=== PATIENT | male | born 1970 | race Caucasian/White ===

== ENCOUNTER 2016-09-03 07:52 | Emergency (ER) ==
[2016-09-03] MEDS ORDERED: ASPIRIN PO STA (07:53)
[2016-09-03 08:16] LABS: MANUAL DIFF NEEDED? NO
[2016-09-03 08:18] LABS: BASO% 0.4 % (0.0-0.8); EOS# 0.05 X1000 (0.0-0.7); EOS% 0.4 % (0.0-10.0); HEMATOCRIT 47.4 % (42.0-52.0); HEMOGLOBIN 16.6 g/dL (14.0-18.0); IMM GRAN# 0.02 X1000 (0.0-0.04); IMM GRAN% 0.2 % (0.0-0.5); LYMPH# 2.29 X1000 (1.2-3.4); LYMPH% 18.1 % (20.5-51.1); MCH 30.6 PG (27-31); MCV 87.3 FL (81-99); MONO# 1.05 X1000 (0.11-0.59); MONO% 8.3 % (1.7-9.3); MPV 10.6 FL (7.4-10.4); NEUT% 72.6 % (42.2-75.2); PLT 296 X1000 (130-400); RBC 5.43 XMIL (4.7-6.1)
[2016-09-03] MEDS ORDERED: MORPHINE IV ONE ×2 (08:21→08:24)
[2016-09-03] MEDS ORDERED: NITROGLYCERIN TOP ONE (08:22)
--- NOTE | 2016-09-03 08:22 | EKG Report ---
Test Performed on : 09/03/2016 07:54:04 AM Test Reason : CP Blood Pressure : / mmHG Vent. Rate : 106 BPM Atrial Rate : 106 BPM P-R Int : 146 ms QRS Dur : 092 ms QT Int : 350 ms P-R-T Axes : 060 -15 062 degrees QTc Int : 464 ms Sinus tachycardia. Minimal voltage criteria for LVH, may be normal variant Borderline ECG No previous ECGs available Unconfirmed Result
[2016-09-03] MEDS ORDERED: MORPHINE ONE (08:23)
[2016-09-03] MEDS ORDERED: NITROGLYCERIN ONE (08:24)
[2016-09-03] MEDS ORDERED: G.I. COCKTAIL PO ONE (08:24)
[2016-09-03] MEDS ORDERED: LOPRESSOR IV ONE ×2 (08:31→12:49)
--- NOTE | 2016-09-03 08:31 | PROVIDER DOCUMENTATION ---
HPI-Chest Pain <Luke Gasca - Last Filed: 09/03/16 11:22> - General Source: patient - History of Present Illness-CP Location: reports: substernal Chest Pain Radiation: reports: arms, shoulders, back Quality of Pain: reports: aching Severity in ED: severe Onset/Duration: last night Timing: still present, constant Context/Activities at Onset: reports: none Modifying Factors: improves with: nothing Associated Symptoms: denies: diaphoresis, edema, fever/chills, nausea, shortness of breath, vomiting Aspirin Treatment Today: no aspirin today Prior Chest Pain/Cardiac Workup: reports: no prior chest pain Similar Symptoms Previously?: Yes (see HPI) Recently Seen Here or By Another Healthcare Provider: No <Josse Lorenzana - Last Filed: 09/03/16 14:53> - General Chief Complaint: Chest Pain Stated Complaint: CHEST PAIN Time Seen by Provider: 09/03/16 08:19 Allergies/Adverse Reactions: Patient Allergies Allergy/AdvReac Type Severity Reaction Status Date / Time No Known Allergies Allergy Verified 09/03/16 08:04 Home Medications: Home Medication List Medication Instructions Recorded Confirmed Last Taken Type Amlodipine Besylate 5 mg PO BID 09/03/16 09/03/16 09/03/16 History Esomeprazole Magnesium [Nexium] 40 mg PO DAILY 09/03/16 09/03/16 09/02/16 History Lisinopril 20 mg PO BID 09/03/16 09/03/16 09/03/16 History Oxycodone HCl/Acetaminophen 1 each PO Q6H 09/03/16 09/03/16 09/02/16 History [Percocet 7.5-325 mg Tablet] - History of Present Illness-CP Nature of Presenting Problem: aching lower CP, constant since ~2100 last pm. Rad to back, down both arm to wrists, not below. Denies diaporesis, SOB, N/V, palpitations. Nothing makes better, worse. Says feels that cannot sit still. Had similar pain Fri pm, omly lasted 1-2 hours. No prior hx ht dz, or family hx (Josse Lorenzana) Review of Systems - Adult - REVIEW OF SYSTEMS - ADULT Constitutional: reports: no symptoms reported Eyes: reports: no symptoms reported Ears, Nose, Mouth & Throat: reports: no symptoms reported Cardiovascular: reports: see HPI Respiratory: reports: no symptoms reported Gastrointestinal: reports: no symptoms reported Genitourinary: reports: no symptoms reported Musculoskeletal: reports: no symptoms reported Integumentary: reports: no symptoms reported Neurological: reports: no symptoms reported Psychiatric: reports: no symptoms reported Endocrine: reports: no symptoms reported Hematologic/Lymphatic: reports: no symptoms reported Allergic/Immunologic: reports: no symptoms reported <Josse Lorenzana - Last Filed: 09/03/16 14:53> Past History - Adult - PAST MEDICAL HISTORY-ADULT Review of Records: reports: Medications Reviewed Major Childhood Illnesses: reports: denies history Cardiovascular: reports: HTN Respiratory: reports: denies history Gastrointestinal: reports: GERD Genitourinary: reports: denies history Neurological: reports: denies history Psychiatric: reports: denies history - SOCIAL HISTORY Smoking: greater than 1 pack/day Provider spent 3-5 mins advising pt. on dangers of tobacco.: Discussed manners to quit use, and f/u contacts for add'l counseling. <Josse Lorenzana - Last Filed: 09/03/16 14:53> Physical Exam-General - PHYSICAL EXAM-ADULT Initial Vital Signs Reviewed: Yes - CONSTITUTIONAL General Appearance: alert, moderate distress - EYES Eyes: PERRL/EOMI, pink conjunctivae - HEAD, EARS, NOSE, MOUTH & THROAT HENMT: normocephalic/atraumatic, moist mucous membranes, normal ENT inspection - NECK Neck: full range of motion, supple - RESPIRATORY Respiratory: lungs clear, normal breath sounds, no respiratory distress - CARDIOVASCULAR Cardiovascular: regular rate, rhythm, no edema, no gallop, no murmur - GASTROINTESTINAL (ABDOMEN) Abdominal Exam: normal bowel sounds, non tender, soft - GENITOURINARY Male Genitalia: deferred Rectal Exam: deferred - MUSCULOSKELETAL Back Exam: normal inspection, no CVA tenderness, no vertebral tenderness Extremity: normal range of motion, non-tender - SKIN Integumentary: normal color, normal turgor, warm/dry - NEUROLOGIC Neurologic: shade cloth finisher II-XII nml as tested, grossly normal, no motor/sensory deficits - PSYCHIATRIC Psych/Mental Status: normal mood/affect, normal thought content, normal thought process, oriented x 3 <Josse Lorenzana - Last Filed: 09/03/16 14:53> Progress - EKG 1 Time of EKG reading by physician:: 07:54 EKG Read and Signed by:: Josse Lorenzana EKG Interpretation (*Must complete 3 of following elements*): Abnormal (minmal voltage criteria for LVH may be normal variant) Rate: 106 Rhythm: sinus tachy [place]: normal MS Interval: normal 2 Time of EKG reading by physician:: 10:29 EKG Read and Signed by:: Josse Lorenzana EKG Interpretation (*Must complete 3 of following elements*): Abnormal Rate: 82 Rhythm: nsr [place]: normal QRS: LVH ST Wave: non-specific ST changes - XRAY 1 XRAY: Bilateral XRAY Study: Chest Impression: Normal XRAY Interpretation: nad - CONSULTS/PCP/HOSPITALIST Notification #1 *Consult/PCP/Hospitalist*: Time Discussed: 11:10 ([facility] ) <Luke Gasca - Last Filed: 09/03/16 11:22> <Josse Lorenzana - Last Filed: 09/03/16 14:53> - PLAN OF CARE/RESULTS Progress/Plan/Lab Results: Orders Category Date Time Status Cardiac Monitoring DIRECTED Care 09/03/16 07:53 Active Oxygen Therapy- ED Nursing DIRECTED Care 09/03/16 07:53 Active Saline Loc NOW Care 09/03/16 07:53 Active CHEST-2 VIEWS [RAD] Stat Exams 09/03/16 07:53 Draft AMYLASE [CHEM] Stat Lab 09/03/16 08:13 Completed CBC WITH ELECTRONIC DIFF [HEME] Stat Lab 09/03/16 08:13 Completed CK PROFILE [SP CHEM] Stat Lab 09/03/16 08:13 Completed CK PROFILE [SP CHEM] Stat Lab 09/03/16 10:41 Received COMPREHENSIVE METABOLIC PANEL [CHEM] Stat Lab 09/03/16 08:13 Completed LIPASE [CHEM] Stat Lab 09/03/16 08:13 Completed MAGNESIUM [CHEM] Stat Lab 09/03/16 08:13 Completed PRO B-NATRIURETIC PEPTIDE Stat Lab 09/03/16 08:[address] Com[address]IME WITH INR PL [COAG] Stat Lab 09/03/16 08:[address] [COAG] Stat Lab 09/03/16 08:13 Completed TROPONIN T Stat Lab 09/03/16 08:13 Completed TROPONIN T Stat Lab 09/03/16 10:41 Received Aspirin Med 09/03/16 07:53 Discontinued 325 mg PO STAT STA Heparin Med 09/03/16 08:56 Discontinued 5,000 unit .ROUTE .STK-MED ONE Heparin Med 09/03/16 08:43 Discontinued 5,000 unit INJ NOW ONE Heparin 25,000 Units/D5w 250 ml Med 09/03/16 08:45 Active IV 12 unit/kg/hr Hydromorphone [Dilaudid] Med 09/03/16 09:34 Discontinued 1 mg IV NOW ONE Lido/Adam Alk/Al&mg Hydrox [G.i. Cocktail] Med 09/03/16 08:24 Discontinued 30 ml PO NOW ONE Metoprolol [Lopressor] Med 09/03/16 08:31 Discontinued 5 mg IV NOW ONE Morphine Med 09/03/16 08:23 Discontinued 4 mg .ROUTE .STK-MED ONE Morphine Med 09/03/16 08:21 Discontinued 4 mg IV NOW ONE Morphine Med 09/03/16 08:24 Discontinued 4 mg IV NOW ONE Nitroglycerin Med 09/03/16 08:24 Discontinued 1 inch .ROUTE .STK-MED ONE Nitroglycerin Med 09/03/16 08:22 Discontinued 1 inch TOP NOW ONE EKG [EKG] Stat Ther 09/03/16 07:53 Draft EKG [EKG] Stat Ther 09/03/16 09:34 Ordered EKG [EKG] Stat Ther 09/03/16 10:30 Ordered Vital Signs - 24 hr 09/03/16 09/03/16 09/03/16 07:56 08:00 08:30 Temperature 97.1 F L Pulse Rate 107 H 94 H 89 Respiratory 22 24 23 Rate Blood Pressure 170/114 164/116 166/121 O2 Sat by Pulse 97 97 99 Oximetry 09/03/16 09:00 Temperature Pulse Rate 74 Respiratory 16 Rate Blood Pressure 172/117 O2 Sat by Pulse 98 Oximetry Laboratory Tests 09/03/16 09/03/16 09/03/16 08:13 08:13 08:13 WBC RBC Hgb Hct MCV MCH MCHC RDW Std Deviation Plt Count MPV Immature Gran % (Auto) Neut % (Auto) Lymph % (Auto) [place] % (Auto) Eos % (Auto) Baso % (Auto) Immature Gran # (Auto) Neut # (Auto) Lymph # (Auto) [place] # (Auto) Eos # (Auto) Baso # (Auto) PT INR APTT (Factor Assay) Sodium 136 Potassium 3.8 Chloride 102 Carbon Dioxide 21 L Anion Gap 14 BUN 8 Creatinine 0.6 L Estimated GFR/1.73 m2 > 60 BUN/Creatinine Ratio 13 Glucose 122 H Calculated Osmolality 272 Calcium 10.1 Magnesium 1.4 L Total Bilirubin 0.50 AST 47 H ALT 26 Alkaline Phosphatase 80 Creatine Kinase 513 H Creatine Kinase Index 12.6 H CK-MB (CK-2) 64.70 H Troponin T 0.175 H Aqt-S-Zamxzxofuml Pept 415 H Total Protein 7.4 Albumin 4.6 Globulin 3.0 Albumin/Globulin Ratio 2.0 Amylase Lipase 09/03/16 09/03/16 09/03/16 08:13 08:13 08:13 WBC 12.63 H RBC 5.43 Hgb 16.6 Hct 47.4 MCV 87.3 MCH 30.6 MCHC 35.0 RDW Std Deviation 12.4 Plt Count 296 MPV 10.6 H Immature Gran % (Auto) 0.2 Neut % (Auto) 72.6 Lymph % (Auto) 18.1 L [place] % (Auto) 8.3 Eos % (Auto) 0.4 Baso % (Auto) 0.4 Immature Gran # (Auto) 0.02 Neut # (Auto) 9.17 H Lymph # (Auto) 2.29 [place] # (Auto) 1.05 H Eos # (Auto) 0.05 Baso # (Auto) 0.05 PT 12.8 INR 0.93 APTT (Factor Assay) 30.3 Sodium Potassium Chloride Carbon Dioxide Anion Gap BUN Creatinine Estimated GFR/1.73 m2 BUN/Creatinine Ratio Glucose Calculated Osmolality Calcium Magnesium Total Bilirubin AST ALT Alkaline Phosphatase Creatine Kinase Creatine Kinase Index CK-MB (CK-2) Troponin T Dku-U-Jvhwizgwfju Pept Total Protein Albumin Globulin Albumin/Globulin Ratio Amylase 64 Lipase 24 Laboratory Tests 09/03/16 09/03/16 09/03/16 08:13 08:13 08:13 WBC RBC Hgb Hct MCV MCH MCHC RDW Std Deviation Plt Count MPV Immature Gran % (Auto) Neut % (Auto) Lymph % (Auto) [place] % (Auto) Eos % (Auto) Baso % (Auto) Immature Gran # (Auto) Neut # (Auto) Lymph # (Auto) [place] # (Auto) Eos # (Auto) Baso # (Auto) PT INR APTT (Factor Assay) Sodium 136 Potassium 3.8 Chloride 102 Carbon Dioxide 21 L Anion Gap 14 BUN 8 Creatinine 0.6 L Estimated GFR/1.73 m2 > 60 BUN/Creatinine Ratio 13 Glucose 122 H Calculated Osmolality 272 Calcium 10.1 Magnesium 1.4 L Total Bilirubin 0.50 AST 47 H ALT 26 Alkaline Phosphatase 80 Creatine Kinase 513 H Creatine Kinase Index 12.6 H CK-MB (CK-2) 64.70 H Troponin T 0.175 H Cnh-W-Uqzokjxdxut Pept 415 H Total Protein 7.4 Albumin 4.6 Globulin 3.0 Albumin/Globulin Ratio 2.0 Amylase Lipase 09/03/16 09/03/16 09/03/16 08:13 08:13 08:13 WBC 12.63 H RBC 5.43 Hgb 16.6 Hct 47.4 MCV 87.3 MCH 30.6 MCHC 35.0 RDW Std Deviation 12.4 Plt Count 296 MPV 10.6 H Immature Gran % (Auto) 0.2 Neut % (Auto) 72.6 Lymph % (Auto) 18.1 L [place] % (Auto) 8.3 Eos % (Auto) 0.4 Baso % (Auto) 0.4 Immature Gran # (Auto) 0.02 Neut # (Auto) 9.17 H Lymph # (Auto) 2.29 [place] # (Auto) 1.05 H Eos # (Auto) 0.05 Baso # (Auto) 0.05 PT 12.8 INR 0.93 APTT (Factor Assay) 30.3 Sodium Potassium Chloride Carbon Dioxide Anion Gap BUN Creatinine Estimated GFR/1.73 m2 BUN/Creatinine Ratio Glucose Calculated Osmolality Calcium Magnesium Total Bilirubin AST ALT Alkaline Phosphatase Creatine Kinase Creatine Kinase Index CK-MB (CK-2) Troponin T Upp-G-Btmgndukemv Pept Total Protein Albumin Globulin Albumin/Globulin Ratio Amylase 64 Lipase 24 09/03/16 09/03/16 10:41 10:41 WBC RBC Hgb Hct MCV MCH MCHC RDW Std Deviation Plt Count MPV Immature Gran % (Auto) Neut % (Auto) Lymph % (Auto) [place] % (Auto) Eos % (Auto) Baso % (Auto) Immature Gran # (Auto) Neut # (Auto) Lymph # (Auto) [place] # (Auto) Eos # (Auto) Baso # (Auto) PT INR APTT (Factor Assay) Sodium Potassium Chloride Carbon Dioxide Anion Gap BUN Creatinine Estimated GFR/1.73 m2 BUN/Creatinine Ratio Glucose Calculated Osmolality Calcium Magnesium Total Bilirubin AST ALT Alkaline Phosphatase Creatine Kinase 875 H Creatine Kinase Index CK-MB (CK-2) Troponin T 0.496 H* D Lwn-K-Mqmojkktqmo Pept Total Protein Albumin Globulin Albumin/Globulin Ratio Amylase Lipase (Luke Gasca) Departure - Departure Time of Disposition Order: 11:10 Certified Medical Emergency: Emergent <Luke Gasca - Last Filed: 09/03/16 11:22> - Departure Time of Disposition Order: 08:30 Certified Medical Emergency: Emergent <Josse Lorenzana - Last Filed: 09/03/16 14:53> - Departure DIAGNOSIS: Non-STEMI (non-ST elevated myocardial infarction) Disposition: ACUTE [facility] 02 Condition: Stable Referrals: Joe Hurd MD [Primary Care Provider] - Attestation - Scribe Verification/Attestation Scribe:: Luke Gasca Acting as Scribe for:: Josse Lorenzana Scribe documention review:: This chart was documented by a scribe and accurately reflects the service the provider performed and the decisions made by the provider. <Luke Gasca - Last Filed: 09/03/16 11:22> Physician Attestation - Physician Attestation I, the provider, attest to the following statement:: Josse Lorenzana Physician documentation Attestation:: This documentation recorded by the scribe accurately reflects the service I personally performed and the decisions made by me. <Josse Lorenzana - Last Filed: 09/03/16 14:53>
[2016-09-03 08:36] LABS: AGAP 14; ALBUMIN 4.6 g/dL (3.5-5.0); ALKALINE PHOSPHATASE 80 U/L (32-122); BUN 8 mg/dL (8-22); CALCIUM 10.1 mg/dL (8.8-10.2); CHLORIDE 102 mmol/L (98-107); COSMO 272; GOT 47 U/L (10-34); GPT 26 U/L (10-44); MAGNESIUM 1.4 mg/dL (1.5-2.7); POTASSIUM 3.8 mmol/L (3.5-5.1); SODIUM 136 mmol/L (136-145); TCO2 21 mmol/L (25-35); TOTAL PROTEIN 7.4 g/dL (6.3-8.3)
[2016-09-03 08:38] LABS: INR 0.93 (0.86-1.15); PROTIME 12.8 Seconds (12.1-15.5)
[2016-09-03 08:39] LABS: PTT PL 30.3 Seconds (22.6-43.9)
[2016-09-03] MEDS ORDERED: HEPARIN INJ ONE (08:43)
[2016-09-03] MEDS ORDERED: HEPARIN 25,000 UNITS/D5W 250 ML IV SCH (08:45)
[2016-09-03 08:50] LABS: AMYLASE 64 U/L (20-200); CK PROFILE 513 U/L (24-204); LIPASE 24 U/L (13-60)
[2016-09-03] MEDS ORDERED: HEPARIN ONE (08:56)
[2016-09-03 09:04] LABS: CK INDEX 12.6 (0.0-2.5)
[2016-09-03] MEDS ORDERED: DILAUDID IV ONE (09:34)
--- NOTE | 2016-09-03 09:57 | Diag Imaging Result Document ---
PROCEDURE NAME: CHEST-2 VIEWS - 09/03/2016 PA AND LATERAL RADIOGRAPH OF THE CHEST: COMPARISON: None available. FINDINGS: The lungs are grossly clear. There is no discrete pleural fluid collection or evidence of pneumothorax. The cardiomediastinal silhouette and upper airway are grossly unremarkable. IMPRESSION: No evidence of acute chest pathology.
[2016-09-03 11:24] LABS: CK INDEX 13.9 (0.0-2.5); CK-MB 121.7 ng/mL (0.0-5.0)
--- NOTE | 2016-09-03 11:28 | EKG Report ---
Test Performed on : 09/03/2016 10:29:57 AM Test Reason : repeat Blood Pressure : / mmHG Vent. Rate : 082 BPM Atrial Rate : 082 BPM P-R Int : 164 ms QRS Dur : 098 ms QT Int : 388 ms P-R-T Axes : 052 -11 031 degrees QTc Int : 453 ms Normal sinus rhythm. Voltage criteria for left ventricular hypertrophy Nonspecific T wave abnormality Abnormal ECG When compared with ECG of 03-SEP-2016 07:54, (Unconfirmed) No significant change was found Unconfirmed Result
--- NOTE | 2016-09-03 14:31 | EKG Report ---
Test Performed on : 09/03/2016 2:08:45 PM Test Reason : repeat Blood Pressure : / mmHG Vent. Rate : 080 BPM Atrial Rate : 080 BPM P-R Int : 162 ms QRS Dur : 098 ms QT Int : 392 ms P-R-T Axes : 043 -07 029 degrees QTc Int : 452 ms Normal sinus rhythm. Voltage criteria for left ventricular hypertrophy Abnormal ECG When compared with ECG of 03-SEP-2016 10:29, (Unconfirmed) No significant change was found Unconfirmed Result
[2016-09-03 14:46] LABS: CK INDEX 13.2 (0.0-2.5); CK-MB 168.8 ng/mL (0.0-5.0)
[2016-09-03] MEDS ORDERED: TYLENOL ONE (14:51)
[2016-09-03 14:59] VITALS: BP 146/81
[2016-09-03] MEDS ORDERED: TYLENOL PO ONE (15:03)
== END 2016-09-03 15:56 | disposition short-term general hospital (02) ==
LOC: P.ED 07:52
DX: I21.4 Non-ST elevation (NSTEMI) myocardial infarction (principal); R94.31 Abnormal electrocardiogram [ECG] [EKG]; R07.89 Other chest pain; M54.9 Dorsalgia, unspecified; M79.602 Pain in left arm; M79.601 Pain in right arm; M25.512 Pain in left shoulder; M25.511 Pain in right shoulder; I10 Essential (primary) hypertension; K21.9 Gastro-esophageal reflux disease without esophagitis; F17.210 Nicotine dependence, cigarettes, uncomplicated; Z79.899 Other long term (current) drug therapy; Z71.6 Tobacco abuse counseling
CPT/HCPCS: 36415; 71020; 80053; 82150; 82550; 82553; 83690; 83735; 83880; 84484; 85025; 85610; 85730; 93005; 96365; 96366; 96375; J1170; J1644; J2270